=== PATIENT | female | born 2000 | race Caucasian/White ===

== ENCOUNTER 2021-04-16 22:00 | Emergency (ER) | payer SELFPAY ==
--- NOTE | 2021-04-16 22:02 | ECG_ITS ---
Test Reason : CHEST PAIN Blood Pressure : / mmHG Vent. Rate : 081 BPM Atrial Rate : 081 BPM P-R Int : 170 ms QRS Dur : 082 ms QT Int : 384 ms P-R-T Axes : 046 032 020 degrees QTc Int : 446 ms Normal sinus rhythm Normal ECG No previous ECGs available Referred By: Generic ED Physician Electronically Signed By:SARAVANAN BACA MD
[2021-04-16 23:15] VITALS: BP 106/67; PULSE 87; RESP 18; TEMP 36.6; O2SAT 99; BMI 37.0
== END 2021-04-17 00:37 | disposition left against medical advice (07) ==
LOC: HO.ED 04-17 00:35
PROVIDERS: Emergency Provider Emergency Medicine
DX: R07.9 Chest pain, unspecified (principal)
CPT/HCPCS: 93005; 99282; 99283